=== PATIENT | female | born 1965 | race Caucasian/White ===

== ENCOUNTER → 2018-08-26 | Outpatient (CLI) | payer OTHER ==
[~2018-08-26] MED LIST: IRON1TAB60 PO; MULT-658 PO
== END | disposition home or self-care (01) ==
LOC: CFH 13:24
PROVIDERS: ATTEND Physician Assistant
DX: M51.36 Other intervertebral disc degeneration, lumbar region (principal); M48.061 Spinal stenosis, lumbar region without neurogenic claudication
CPT/HCPCS: 72110; 72148

== ENCOUNTER 2019-10-17 14:53 | Outpatient (CLI) | payer OTHER | END 2019-10-17 23:59 | disposition home or self-care (01) | LOC: CFH 14:53 | PROVIDERS: ATTEND Physician Assistant Medical | DX: M79.651 Pain in right thigh (principal) ==